=== PATIENT | male | born 1980 | race Two or more races ===

== ENCOUNTER 2024-01-04 20:54 | Emergency (ER) | payer MEDICAID ==
[~2024-01-04] VITALS: Ht 167.6 cm; Wt 63.0 kg
[2024-01-04 22:00] VITALS: BP 114/66; TEMP 98.3; O2SAT 98
[2024-01-04] MEDS: KETOROLAC TROMETH 30 MG/ML 1ML VIAL IM ONE (23:16)
[2024-01-04] MEDS: TETANUS-DIPTH-ACEL PERTUSSIS 0.5ML SYR Tdap IM ONE (23:16)
[2024-01-04] MEDS ORDERED: IBUP-1454 PO (23:20)
[2024-01-04] MEDS ORDERED: AUG875T PO (23:20)
[2024-01-04 23:41] VITALS: PULSE 68; RESP 18
== END 2024-01-04 23:42 | disposition home or self-care (01) ==
LOC: ER 20:54
DX: S63.612A Unspecified sprain of right middle finger, initial encounter (principal); W54.0XXA Bitten by dog, initial encounter; Y93.89 Activity, other specified; Y92.89 Other specified places as the place of occurrence of the external cause; Y99.8 Other external cause status
CPT/HCPCS: 73140; 90471; 90715; 96372; 99284; J1885

== ENCOUNTER 2024-01-09 16:28 | Emergency (ER) | payer MEDICAID ==
[~2024-01-09] VITALS: Ht 182.9 cm; Wt 60.4 kg
[~2024-01-09 16:28] MED LIST: AUG875T PO; IBUP-1454 PO
[2024-01-09] MEDS: ACETAMINOPHEN 500 MG TAB PO ONE (18:15)
[2024-01-09 18:46] LABS: Basophils # (auto) 0.1 10 ^3/uL (0-0.2); Basophils % (auto) 0.7 % (0.0-2.0); Eosinophils # (auto) 0.2 10 ^3/uL (0-0.8); Eosinophils % (auto) 2.3 % (0.0-7.0); Hematocrit 42.8 % (41.0-53.0); Hemoglobin 14.5 g/dL (13.5-17.5); Lymphocytes # (auto) 2.2 10 ^3/uL (0.4-5.4); Lymphocytes % (auto) 27.7 % (10.0-50.0); Mean Corpuscular Hemoglobin 30.6 pg (28.0-32.0); Mean Corpuscular Hgb Conc. 33.8 g/dL (32.0-36.0); Mean Corpuscular Volume 90.5 fL (80.0-100.0); Monocytes # (auto) 0.8 10 ^3/uL (0-1.3); Monocytes % (auto) 10.1 % (0.0-12.0); Neutrophils # (auto) 4.7 10 ^3/uL (1.6-8.6); Neutrophils % (auto) 59.2 % (37.0-80.0); Nucleated Red Blood Cells % 0.1 %; Red Blood Cells 4.73 10^6/uL (4.5-5.90); Red Cell Distribution Width 14.1 % (11.8-14.3)
[2024-01-09 18:58] LABS: Alanine Aminotransferase 38 U/L (7-40); Alkaline Phosphatase 118 U/L (46-116); Anion Gap 0 (5-15); Aspartate Aminotransferase 26 U/L (13-40); BUN/Creatinine Ratio 17.7 (10.0-20.0); Blood Urea Nitrogen 14 mg/dL (9-23); Calcium 8.7 mg/dL (8.5-10.1); Carbon Dioxide 34 mmol/L (20-30); Chloride 106 mmol/L (98-107); Glucose 71 mg/dL (74-106); Potassium 4.5 mmol/L (3.5-5.1); Sodium 140 mmol/L (136-145)
[2024-01-09 18:59] LABS: Bilirubin, Total 0.4 mg/dL (0.2-1.0); Total Protein 6.5 g/dL (5.7-8.2)
[2024-01-09 20:16] VITALS: BP 106/63; PULSE 72; RESP 20; TEMP 98.7; O2SAT 99
[2024-01-10 01:32] LABS: Urine Bacteria FEW /hpf (None Seen); Urine Blood Negative /uL (Negative); Urine Clarity Clear (Clear); Urine Color Light-Yellow (Yellow); Urine Hyaline Cast FEW /lpf (0 - 2); Urine Protein, UAD Negative (Negative); Urine Specific Gravity 1.023 (1.001-1.035); Urine Urobilinogen Normal (Negative); Urine WBC 5 /hpf (0 - 3)
[2024-01-10] MEDS ORDERED: ACET500T58 PO (02:03)
[2024-01-10] MEDS ORDERED: IBUP-1455 PO (02:03)
== END 2024-01-10 03:48 | disposition home or self-care (01) ==
LOC: ER 16:28
DX: B34.9 Viral infection, unspecified (principal); Z79.899 Other long term (current) drug therapy; Z59.00 Homelessness unspecified
CPT/HCPCS: 36415; 80053; 81001; 82550; 83880; 84484; 85025